=== PATIENT | male | born 1970 | race Caucasian/White ===

== ENCOUNTER → 2021-12-14 | Outpatient (CLI) | payer BC ==
--- NOTE | 2021-12-14 11:44 | MR ---
EXAMINATION TYPE: MR cervical spine wo con DATE OF EXAM: 12/14/2021 COMPARISON: None HISTORY: RADICULOPATHY, CERVICALGIA, NUMBNESS LEFT THIGH TECHNIQUE: Multiplanar, multisequence images of the cervical spine were acquired without contrast. C2-C3: No evidence for degenerative disc disease. No disc bulge/herniation or protrusion. No Canal stenosis. Foramina are patent bilaterally. C3-C4: There is some loss of disc signal consistent with disc desiccation. No disc bulge/herniation or protrusion. No Canal stenosis. Some uncovertebral joint hypertrophy causes minimal foraminal encr oachment on the left. C4-C5: No evidence for degenerative disc disease. No disc bulge/herniation or protrusion. No Canal stenosis. Foramina are patent bilaterally. C5-C6: Uncovertebral joint hypertrophy results in some mild foraminal encroachment greater on the lef t, posterior broad-based disc bulge causes slight anterior mass effect on the thecal sac. C6-C7: Bilateral foraminal encroachment is present due to uncovertebral joint hypertrophy, there is l ateral extension of disc material towards the right, contributing to some foraminal encroachment. Pos terior broad-based disc bulge causes anterior mass effect on the thecal sac. No significant spinal st enosis. C7-T1: No evidence for degenerative disc disease. No disc bulge/herniation or protrusion. No Canal stenosis. Foramina are patent bilaterally. Cervical segments are intact. There is normal alignment. Cervical spinal cord is of normal signal w ith the exception of some mild prominence of the central aqueduct at the C6-7 level and C5-6 level. Craniovertebral junction relationships are within normal limits. Cervical vertebral bodies show pres erved height and alignment. There is loss of disc height signal greatest at C5-6 and C6-7, there is a ssociated spondylosis and endplate discogenic marrow signal change. There is no significant spinal st enosis. IMPRESSION: Degenerative disc disease and foraminal encroachment as described.
--- NOTE | 2021-12-14 11:53 | MR ---
EXAMINATION TYPE: MR lumbar spine wo/w con DATE OF EXAM: 12/14/2021 COMPARISON: None HISTORY: RADICULOPATHY, CERICALGIA, NUMBNESS LEFT THIGH TECHNIQUE: Multiplanar, multisequence images of the lumbar spine were acquired without and with 8.5 mL intraveno us Gadavist gadolinium contrast. L1-L2: Normal disc appearance without desiccation. No herniation, protrusion or disc bulging. No ca nal stenosis is present. Foramina are patent bilaterally. L2-L3: Minimal disc bulge eccentric towards the left causes only slight anterior mass effect on the t hecal sac. L3-L4: Normal disc appearance without desiccation. No herniation, protrusion or disc bulging. No ca nal stenosis is present. Foramina are patent bilaterally. L4-L5: Minimal posterior broad-based disc bulge causes slight anterior mass effect on the thecal sac. L5-S1: Some facet arthropathy change is noted. No evident disc herniation. Lumbar segments are intact. No paraspinal masses are identified. Conus medullaris has a normal appe arance. Lumbar vertebral bodies show preserved height and alignment. There is multilevel spondylosis with endplate discogenic marrow signal change. Loss of disc signal at L2-3, L4-5 and L5-S1 is consist ent with disc desiccation, there is associated loss of disc height greater at L5-S1, L2-3. There is n o significant spinal stenosis. No significant foraminal encroachment. Extrarenal pelvis present on th e left. IMPRESSION: Mild degenerative disc disease.
== END | disposition home or self-care (01) ==
LOC: RADMRIMAIN 07:28
PROVIDERS: ATTEND Internal Medicine Geriatric Medicine
DX: M51.16 Intervertebral disc disorders with radiculopathy, lumbar region (principal); M50.123 Cervical disc disorder at C6-C7 level with radiculopathy
CPT/HCPCS: 72141; 72158; A9585

== ENCOUNTER → 2024-06-20 | Outpatient (CLI) | payer BC ==
--- NOTE | 2024-06-20 09:17 | CT ---
EXAMINATION TYPE: CT chest w con DATE OF EXAM: 06/20/2024 8:16 AM COMPARISON: None CLINICAL INDICATION: Male, 54 years old with history of R91.1 SPN; PHH, lung nodules TECHNIQUE: CT of the chest after IV contrast. Coronal and sagittal constructions performed. Contrast used:100 mL of Isovue 300 with IV Contrast (None if empty) CT DLP: 563 mGycm, Automated exposure control for dose reduction was used. FINDINGS: The heart is normal size without pericardial effusion. No significant coronary calcifications are see n. Aorta normal caliber with conventional vessel branching anatomy. No thoracic lymphadenopathy by CT size criteria. Borderline caliber main right and left pulmonary arteries measuring up to 2.5 cm. Some strandy subpleural atelectasis posterior mid to lower lungs. No consolidation or pleural effusio n. 7 mm inferior lingular pulmonary nodule. A couple 4 mm and smaller pulmonary nodules along the minor fissure, axial image 33 and 34. 4 mm anterior right midlung pulmonary nodule, axial image 28 3 mm lingular pulmonary nodule, axial image 38. There may be some fatty infiltration in the liver given low attenuation. Visualized upper abdomen oth erwise shows no gross abnormality. Bones: Mild degenerative disc disease mid to lower thoracic spine. IMPRESSION: A few scattered pulmonary nodules, largest in the inferior lingula measuring 7 mm. Per Fleischner feli delines, recommend follow-up CT in 6-12 months then at 18-24 months. [facility], , 06/20/2024 9:14 AM
== END | disposition home or self-care (01) ==
LOC: RADCTMAIN 07:51
PROVIDERS: ATTEND Internal Medicine Critical Care Medicine
DX: R91.8 Other nonspecific abnormal finding of lung field (principal)
CPT/HCPCS: 71260; Q9967